=== PATIENT | female | born 1985 | race Caucasian/White ===

== ENCOUNTER 2018-07-02 20:21 | Emergency (ER) | payer MEDICAID ==
[2018-07-02 22:28] LABS: ADD MAN DIFF? NO; BASOPHILS % 0.5 % (0.0-2.0); EOSINOPHILS # 0.2 10^3/ul (0.0-0.5); EOSINOPHILS % 1.7 % (0.0-7.0); HEMATOCRIT 37.4 % (37.0-47.0); HEMOGLOBIN 12.5 g/dl (12.0-16.0); LYMPHOCYTES # 2.3 10^3/ul (0.8-2.9); LYMPHOCYTES % 26.4 % (15.0-51.0); MEAN CORPUSCULAR HEMOGLOBIN 30.7 pg (29.0-33.0); MEAN CORPUSCULAR HGB CONC 33.4 g/dl (32.0-37.0); MEAN CORPUSCULAR VOLUME 91.9 fl (82.0-101.0); MEAN PLATELET VOLUME 10.3 fl (7.4-10.4); MONOCYTE # 0.4 10^3/ul (0.3-0.9); MONOCYTES % 4.8 % (0.0-11.0); NEUTROPHIL # 5.9 10^3/ul (1.6-7.5); NEUTROPHILS % 66.4 % (39.0-77.0); PLATELET COUNT 276 10^3/UL (140-415); RED BLOOD COUNT 4.07 10^6/ul (4.20-5.40); RED CELL DISTRIBUTION WIDTH 13.2 % (11.5-14.5)
[2018-07-02 22:28] LABS: WHITE BLOOD COUNT 8.8 10^3/ul (4.8-10.8)
[2018-07-02 22:48] LABS: ADD UMIC YES; UR ASCORBIC ACID NEGATIVE (NEGATIVE); UR BACTERIA FEW /HPF (NONE SEEN); UR BILIRUBIN (Dip) NEGATIVE (NEGATIVE); UR BLOOD (Dip) 3+ mg/dL (NEGATIVE); UR CLARITY CLOUDY (CLEAR); UR COLOR RED (YELLOW); UR GLUCOSE (Dip) NEGATIVE (NEGATIVE); UR KETONES (Dip) NEGATIVE (NEGATIVE); UR LEUKOCYTE ESTERASE (Dip) 2+ Leu/ul (NEGATIVE); UR MUCUS FEW /HPF (NONE SEEN); UR NITRITE (Dip) NEGATIVE (NEGATIVE); UR RBC > 182 /HPF (0-5); UR SPECIFIC GRAVITY (Dip) 1.023 (1.003-1.030); UR SQUAMOUS EPITHELIAL CELL FEW /HPF (FEW); UR TOTAL PROTEIN (Dip) 2+ mg/dl (NEGATIVE); UR UROBILINOGEN (Dip) 1+ mg/dL (NEGATIVE); UR WBC 93 /HPF (0-5)
[2018-07-03] MEDS: MISOPROSTOL 200 MCG TAB PO (00:57)
[2018-07-03] MEDS: ACETAMINOPHEN 325 MG TAB PO (00:58)
== END 2018-07-03 01:45 | disposition home or self-care (01) ==
LOC: FTE 20:21
DX: O20.9 Hemorrhage in early pregnancy, unspecified (principal); R10.2 Pelvic and perineal pain; Z3A.10 10 weeks gestation of pregnancy
CPT/HCPCS: 36415; 76801; 81001; 84702; 85025; 86900; 86901; 99284-25

== ENCOUNTER 2018-07-05 10:59 | Emergency (ER) | payer MEDICAID ==
[2018-07-05] MEDS: PHENAZOPYRIDINE 100 MG TAB PO (12:28)
[2018-07-05 13:36] LABS: ADD UMIC YES; UR ASCORBIC ACID NEGATIVE (NEGATIVE); UR BACTERIA FEW /HPF (NONE SEEN); UR BILIRUBIN (Dip) NEGATIVE (NEGATIVE); UR BLOOD (Dip) 3+ mg/dL (NEGATIVE); UR CLARITY SLIGHTLY CLOUDY (CLEAR); UR COLOR YELLOW (YELLOW); UR GLUCOSE (Dip) NEGATIVE (NEGATIVE); UR KETONES (Dip) NEGATIVE (NEGATIVE); UR LEUKOCYTE ESTERASE (Dip) 2+ Leu/ul (NEGATIVE); UR MUCUS FEW /HPF (NONE SEEN); UR NITRITE (Dip) NEGATIVE (NEGATIVE); UR RBC > 182 /HPF (0-5); UR SPECIFIC GRAVITY (Dip) 1.013 (1.003-1.030); UR SQUAMOUS EPITHELIAL CELL FEW /HPF (FEW); UR TOTAL PROTEIN (Dip) 1+ mg/dl (NEGATIVE); UR UROBILINOGEN (Dip) NEGATIVE (NEGATIVE); UR WBC > 182 /HPF (0-5)
== END 2018-07-05 14:04 | disposition home or self-care (01) ==
LOC: FTE 10:59
DX: O03.9 Complete or unspecified spontaneous abortion without complication (principal); O23.40 Unspecified infection of urinary tract in pregnancy, unspecified trimester; R10.2 Pelvic and perineal pain
CPT/HCPCS: 81001; 84702; 99283